=== PATIENT | female | born 1985 | race Caucasian/White ===

== ENCOUNTER 2019-03-05 08:48 | Inpatient (IN) | payer MEDICAID ==
[2019-03-05 09:29] LABS: ADD MAN DIFF? NO
[2019-03-05] MEDS ORDERED: CARBOPROST 250 MCG INJ IM ×2 (09:30→17:00)
[2019-03-05] MEDS ORDERED: METHYLERGONOVINE 0.2 MG INJ IM ×2 (09:30→17:00)
[2019-03-05] MEDS ORDERED: MISOPROSTOL 200 MCG TAB PR ×2 (09:30→17:00)
[2019-03-05] MEDS ORDERED: OXYTOCIN 30 UNITS/LR 500 ML IV ×2 (09:30→17:00)
[2019-03-05 09:34] LABS: ABNORMAL IP MESSAGE 1; BASOPHILS % 0.6 % (0.0-2.0); EOSINOPHILS # 0.1 10^3/ul (0.0-0.5); EOSINOPHILS % 1.2 % (0.0-7.0); HEMATOCRIT 37.4 % (37.0-47.0); HEMOGLOBIN 12.7 g/dl (12.0-16.0); LYMPHOCYTES # 2.2 10^3/ul (0.8-2.9); MEAN CORPUSCULAR HEMOGLOBIN 30.8 pg (29.0-33.0); MEAN CORPUSCULAR VOLUME 90.8 fl (82.0-101.0); MEAN PLATELET VOLUME 13.1 fl (7.4-10.4); MONOCYTE # 0.5 10^3/ul (0.3-0.9); MONOCYTES % 7.6 % (0.0-11.0); PLATELET COUNT 188 10^3/UL (140-415); RED BLOOD COUNT 4.12 10^6/ul (4.20-5.40); RED CELL DISTRIBUTION WIDTH 14.2 % (11.5-14.5)
[2019-03-05 09:34] LABS: WHITE BLOOD COUNT 6.8 10^3/ul (4.8-10.8)
[2019-03-05 09:38] LABS: POSITIVE DIFF @See below
[2019-03-05 09:55] LABS: INR 0.91; PROTIME 12.4 Sec (11.9-14.9)
[2019-03-05 09:56] LABS: PARTIAL THROMBOPLASTIN TIME 28.1 Sec (23.0-35.0)
[2019-03-05 10:21] LABS: HEPATITIS B SURFACE ANTIGEN NEGATIVE (NEGATIVE)
[2019-03-05] MEDS: LACTATED RINGER'S 1,000 ML IV ×2 (10:44→12:31)
[2019-03-05 11:38] LABS: GLUCOSE 111 mg/dl (70-220)
[2019-03-05] MEDS: ONDANSETRON 4 MG INJ IV (12:31)
[2019-03-05] MEDS: CITRIC ACID/NA CITRATE 30 ML CUP PO (12:31)
[2019-03-05] MEDS ORDERED: OXYTOCIN 10 UNIT INJ (12:43)
[2019-03-05] MEDS ORDERED: PHENYLephrine (100 MCG/ML) 10ML SYG (12:43)
[2019-03-05] MEDS ORDERED: morphine SULFATE/PF (10 MG/10 ML) INJ (12:43)
[2019-03-05] MEDS ORDERED: DEXAMETHASONE 4 MG/ML 1 ML INJ (12:59)
[2019-03-05] MEDS ORDERED: METOCLOPRAMIDE 10 MG INJ (12:59)
[2019-03-05] MEDS ORDERED: EPHEDrine 25 MG/5 ML SYG (12:59)
[2019-03-05] MEDS ORDERED: KETOROLAC 30 MG INJ (12:59)
[2019-03-05] MEDS: CEFAZOLIN 2 GM/50 ML (PMX) 50 ML IVPB (13:02)
[2019-03-05] MEDS ORDERED: HYDROCODONE/APAP (5/325) TAB PO (13:30)
[2019-03-05] MEDS ORDERED: ONDANSETRON 4 MG INJ IV (13:30)
[2019-03-05] MEDS ORDERED: HYDROmorphONE 0.5 MG/0.5 ML SYG IV ×2 (13:30)
[2019-03-05] MEDS ORDERED: DIPHENHYDRAMINE 50 MG INJ IV (13:30)
[2019-03-05] MEDS ORDERED: morphine 2 MG INJ IV ×2 (13:30)
[2019-03-05] MEDS ORDERED: ACETAMINOPHEN 500 MG TAB PO (13:30)
[2019-03-05] MEDS ORDERED: NALOXONE (0.4 MG/ML) INJ IV (13:30)
[2019-03-05] MEDS ORDERED: NALBUPHINE HCL (10 MG/1 ML) INJ IV (13:30)
[2019-03-05] MEDS: OXYTOCIN 30 UNITS/LR 500 ML IV ×3 (15:33→21:10)
[2019-03-05] MEDS: DEXTROSE 5%-LR 1,000 ML IV (16:38)
[2019-03-05] MEDS ORDERED: METHYLERGONOVINE 0.2 MG TAB PO (17:00)
[2019-03-05] MEDS: ACCU-CHEK XX ×2 (17:35→21:03)
[2019-03-05] MEDS: SENNA/DOCUSATE NA (8.6MG/50MG) TAB PO (21:00)
[2019-03-05 21:46] LABS: RAPID PLASMA REAGIN NONREACTIVE (NR)
[2019-03-05] MEDS: IBUPROFEN 800 MG TAB PO (22:00)
[2019-03-05] MEDS: KETOROLAC 30 MG INJ IV (23:06)
[2019-03-06] MEDS: DEXTROSE 5%-LR 1,000 ML IV ×3 (00:38→16:38)
[2019-03-06] MEDS: KETOROLAC 30 MG INJ IV ×2 (05:28→12:18)
[2019-03-06] MEDS: LACTATED RINGER'S 1,000 ML IV ×2 (05:28→15:06)
[2019-03-06] MEDS: LANOLIN HPA 1 PKT TOP (05:28)
[2019-03-06] MEDS: IBUPROFEN 800 MG TAB PO ×3 (06:00→21:47)
[2019-03-06] MEDS: HYDROCODONE/APAP (5/325) TAB GTB ×3 (06:00→21:48)
[2019-03-06 08:24] LABS: ADD MAN DIFF? NO
[2019-03-06 08:26] LABS: WHITE BLOOD COUNT 8.5 10^3/ul (4.8-10.8)
[2019-03-06 08:26] LABS: ABNORMAL IP MESSAGE 1; BASOPHILS % 0.2 % (0.0-2.0); EOSINOPHILS % 0.4 % (0.0-7.0); HEMATOCRIT 26.5 % (37.0-47.0); HEMOGLOBIN 8.9 g/dl (12.0-16.0); LYMPHOCYTES # 2.4 10^3/ul (0.8-2.9); LYMPHOCYTES % 28.7 % (15.0-51.0); MEAN CORPUSCULAR HEMOGLOBIN 30.9 pg (29.0-33.0); MEAN CORPUSCULAR HGB CONC 33.6 g/dl (32.0-37.0); MEAN PLATELET VOLUME 13.6 fl (7.4-10.4); MONOCYTE # 0.8 10^3/ul (0.3-0.9); MONOCYTES % 9.1 % (0.0-11.0); NEUTROPHIL # 5.2 10^3/ul (1.6-7.5); NEUTROPHILS % 61.1 % (39.0-77.0); PLATELET COUNT 148 10^3/UL (140-415); RED BLOOD COUNT 2.88 10^6/ul (4.20-5.40); RED CELL DISTRIBUTION WIDTH 14.3 % (11.5-14.5)
[2019-03-06 08:30] LABS: POSITIVE DIFF @See below
[2019-03-06] MEDS: SENNA/DOCUSATE NA (8.6MG/50MG) TAB PO ×2 (09:00→21:17)
[2019-03-06] MEDS: FERROUS SULFATE (EC) 325 MG TAB PO ×2 (17:47→21:17)
[2019-03-07] MEDS: DEXTROSE 5%-LR 1,000 ML IV ×3 (00:38→19:00)
[2019-03-07] MEDS: HYDROCODONE/APAP (5/325) TAB GTB ×3 (06:00→21:48)
[2019-03-07] MEDS: IBUPROFEN 800 MG TAB PO ×3 (06:01→21:48)
[2019-03-07] MEDS: SENNA/DOCUSATE NA (8.6MG/50MG) TAB PO ×2 (08:58→20:30)
[2019-03-07] MEDS: FERROUS SULFATE (EC) 325 MG TAB PO ×2 (08:58→20:30)
[2019-03-07] MEDS: HYDROCODONE/APAP (5/325) TAB NGT (20:29)
[2019-03-07] MEDS: ACCU-CHEK XX ×4 (21:00)
[2019-03-08] MEDS: DEXTROSE 5%-LR 1,000 ML IV (00:38)
[2019-03-08] MEDS: MAGNESIUM HYDROXIDE 30ML CUP PO (03:53)
[2019-03-08] MEDS: HYDROCODONE/APAP (5/325) TAB GTB ×2 (05:54→14:00)
[2019-03-08] MEDS: IBUPROFEN 800 MG TAB PO ×2 (05:54→13:49)
[2019-03-08] MEDS: ACCU-CHEK XX ×2 (07:35→11:20)
[2019-03-08] MEDS: MEASLES,MUMPS,RUBELLA VACCINE INJ SC* (07:36)
[2019-03-08] MEDS: SENNA/DOCUSATE NA (8.6MG/50MG) TAB PO (08:30)
[2019-03-08] MEDS: FERROUS SULFATE (EC) 325 MG TAB PO (08:30)
[2019-03-08] MEDS ORDERED: DIPHTH/TET/ACEL PERTUSS (ADULT) 0.5 ML VIAL IM* (09:00)
[2019-03-08] MEDS: DIPHTH/TET/ACEL PERTUSS (ADULT) 0.5 ML VIAL IM* ×2 (12:31→12:36)
== END 2019-03-08 15:30 | disposition home or self-care (01) | DRG 788 ==
LOC: L-D 08:48 → PP1 16:10
PROVIDERS: Obstetrics & Gynecology
PROC: 10D00Z1 Extraction of Products of Conception, Low, Open Approach (ICD-10-PCS; principal; 2019-03-05 10:30)
DX: O24.429 Gestational diabetes mellitus in childbirth, unspecified control (principal); O99.02 Anemia complicating childbirth; Z3A.39 39 weeks gestation of pregnancy; Z37.0 Single live birth
CPT/HCPCS: 82947; 82962; 85025; 85610; 85730; 86592; 86850; 86900; 86901; 87340; 90715; 99464